=== PATIENT | female | born 1960 | race Caucasian/White ===

== ENCOUNTER → 2016-07-25 18:16 | Outpatient (CLI) | payer BC ==
[~2016-07-25 18:16] MED LIST: NORCO 10/325 TA1 TA1 PO; STOOL SOFTENER240 MG PO; ZIAC 10/6.25 MG1 TAB PO; ZOFRAN ODT4 MG/UDTAB PO
== END | disposition home or self-care (01) ==
LOC: D.MAMMO 07-08 09:30 → D.US 07-08 10:30 → D.MAMMO 09:00
DX: R92.8 Other abnormal and inconclusive findings on diagnostic imaging of breast (principal)

== ENCOUNTER → 2017-11-03 09:30 | Outpatient (CLI) | payer BC | END | disposition home or self-care (01) | LOC: D.MAMMO 09:30 | DX: Z12.31 Encounter for screening mammogram for malignant neoplasm of breast (principal) ==

== ENCOUNTER 2018-11-26 08:00 | Outpatient (CLI) | payer BC | END 2018-11-26 23:59 | disposition home or self-care (01) | LOC: D.MAMMO 08:00 | PROVIDERS: ATTEND Family Medicine | DX: Z12.31 Encounter for screening mammogram for malignant neoplasm of breast (principal) ==

== ENCOUNTER 2019-12-11 09:15 | Outpatient (CLI) | payer BC | END 2019-12-11 10:15 | disposition home or self-care (01) | LOC: D.MAMMO 09:15 | PROVIDERS: ATTEND Family Medicine | DX: Z12.31 Encounter for screening mammogram for malignant neoplasm of breast (principal) ==